=== PATIENT | female | born 1950 | race Caucasian/White ===

== ENCOUNTER → 2019-05-04 | Outpatient (CLI) | payer OTHER ==
[~2019-05-04] MED LIST: REGADENOSON 0.4 MG/5 ML DISP.SYRIN. IV ONE
--- NOTE | 2019-05-04 09:12 | PCVCIMAG ---
EXAM: BILATERAL LOWER EXTREMITY ARTERIAL DUPLEX INDICATION: Peripheral Arterial Disease. Leg pain. FINDINGS: Right Leg: Satisfactory arterial waveforms throughout the common/profunda/superficial femoral, popliteal, anterior tibial, peroneal, and posterior tibial arteries. No flow limiting stenosis seen. Left Leg: Satisfactory arterial waveforms throughout the common/profunda/superficial femoral, popliteal, anterior tibial, peroneal, and posterior tibial arteries. No flow limiting stenosis seen. IMPRESSION: No flow limiting stenosis in the right lower extremity. No flow limiting stenosis in the left lower extremity. LOC:[id number]
--- NOTE | 2019-05-04 13:07 | PCVCIMAG ---
APPROVED REPORT Imaging Protocol: Rest Tc-99m/Stress Tc-99m 1 day Study performed: 05/04/2019 09:28:24 Indication: Dyspnea Patient Location: Out-Patient Stress Nurse: Junaa Rodriguez RN, Adina Garrett RN [place] Tech:Pamela Mirandajackie [facility] Ht: 5 ft 1 in Wt: 143 lbs BSA: 1.64 m2 HR: 51 bpm BP: 144/69 mmHg BMI: 27.01 Rhythm: Sinus Bradycardia Medical History Medical History: Hyperlipidemia, HTN Medications: Amlodipine, Aspirin, Altace Allergies: PCN, Codeine, Statins Cardiac Risk Factors: Current Smoker Pretest Chest Pain Characteristics: No chest pain Resting Data Rest SPECT myocardial perfusion imaging was performed in supine position 45 minutes following the intravenous injection of 10.5 mCi of Tc-99m Sestamibi. Time of rest injection: 09 Date: 05/04/2019 Administration Route: IV Administration Site: Right AC Pharmacologic Stress Pharmacologic stress test was performed by injecting Regadenoson 0.4 mg IV push over 10-15 seconds immediately followed by the intravenous injection of 34.8 mCi of Tc-99m Sestamibi. Time of stress injection: 1100 Administration Route: IV Administration Site: Right AC Gated Stress SPECT was performed 45 minutes after stress injection. The images were gated to evaluate regional wall motion and calculate left ventricular ejection fraction. Stress Test Details Stress Test: Pharmacologic stress testing performed using 0.4 mg of regadenoson per 5 mL given IV over 10 seconds. Reason for pharmacologic stress test: physical limitation, leg issues. HRMax Heart Rate (APMHR): 151 bpm Resting HR: 51 bpmTarget HR (85% APMHR): 128 bpm Max HR Achieved: 99 bpm % of APMHR: 65 Recovery HR: 87 bpm BP Resting BP: 144/69 mmHg Max BP: 148/77 mmHg Recovery BP: 130/76 mmHg ECG Resting ECG: Sinus Bradycardia Stress ECG: Sinus Rhythm ST Change: Non-ischemic Arrhythmia: None Recovery ECG: Sinus Rhythm Clinical Reason for Termination: Completed protocol Stress Symptoms: Abdominal discomfort, Chest heaviness Symptoms resolved with caffeine. Study Quality Study: Good Study Data Post stress, the left ventricular ejection was 73%.. SSS: 3 SRS: 0 SDS: 3 TID = 1.27. Perfusion There is a medium area of moderately reduced uptake in the mid and apical segment of the anterior wall which is seen on the stress images and improves on the resting images. This area thickens and moves normally and is most consistent with ischemia. Wall Motion Normal left ventricular wall motion. Nuclear Conclusion ECG Findings: negative for ischemia Clinical Findings: non-diagnostic Nuclear Findings: positive for ischemia Exercise Capacity: not assessed Left Ventricular Function: normal This study reveals a reversible defect in the anterior wall, suggestive for ischemia. There is normal global and segmental LV systolic function.
== END | disposition home or self-care (01) ==
LOC: PCVCIMAG 08:50
PROVIDERS: ATTEND Internal Medicine Cardiovascular Disease
DX: I73.9 Peripheral vascular disease, unspecified (principal); I10 Essential (primary) hypertension; E78.5 Hyperlipidemia, unspecified
CPT/HCPCS: 78452; 93017; 93925; A9500; J2785